=== PATIENT | male | born 1950 | race Caucasian/White ===

== ENCOUNTER 2019-03-31 06:55 | Day surgery (SDC) | payer MEDICARE, OTHER ==
[~2019-03-31] VITALS: Ht 185.4 cm; Wt 99.8 kg
[2019-03-31 07:15] LABS: HEMATOCRIT 39.1 % (42.0-54.0); MCH 29.3 pg (26.0-34.0); MCHC 33.2 g/dL (31.0-37.0); MCV 88.3 fL (80.0-100.0); MEAN PLATELET VOLUME 9.6 fL (7.4-10.4); RBC 4.43 10x6/uL (4.20-6.10); RDW 13.6 % (11.5-14.5); WBC 5.2 10x3/uL (4.8-10.8)
[2019-03-31 07:40] LABS: ANION GAP 11.5 mmol/L (8-16); CALCIUM 9.5 mg/dL (8.5-10.1); CARBON DIOXIDE 30.5 mmol/L (21.0-32.0); CREATININE - SERUM 1.2 mg/dL (0.6-1.3)
[2019-03-31] MEDS ORDERED: CELEXA20 MG PO (07:45)
[2019-03-31] MEDS ORDERED: CRESTOR5 MG PO (07:46)
[2019-03-31] MEDS ORDERED: ROBAXIN500 MG PO (07:46)
[2019-03-31] MEDS ORDERED: ULTRAM50 MG PO (07:46)
[2019-03-31] MEDS ORDERED: BENICAR40 MG PO (07:46)
[2019-03-31] MEDS ORDERED: FLUTICASONE PRO16 GM NASAL (07:46)
[2019-03-31] MEDS ORDERED: NORVASC10 MG PO (07:47)
[2019-03-31] MEDS ORDERED: COREG12.5 MG PO (07:47)
[2019-03-31] MEDS ORDERED: FLOMAX0.4 MG PO (07:47)
[2019-03-31] MEDS ORDERED: HYDROCHLOROTH12.5 M1 PO (07:48)
[2019-03-31] MEDS ORDERED: ASPIRIN81 MG PO (07:48)
[2019-03-31] MEDS ORDERED: PLAVIX75 MG PO (07:48)
[2019-03-31 07:55] VITALS: BP 145/75; Ht 185.4 cm; Wt 99.8 kg
--- NOTE | 2019-03-31 13:28 | NUR ---
DC INSTRUCTIONS GIVEN TO PT/SPOUSE. STATE UNDERSTANDING. DC'D IV CATH FULLY INTACT.
--- NOTE | 2019-03-31 13:50 | NUR ---
PT LEFT UNIT VIA WC AT 1347
--- NOTE | 2019-04-21 11:31 | HP ---
PATIENT: CJ MIRZA MEDICAL RECORD: [id number] ACCOUNT: [id number] LOCATION:[facility] : 48 ADMISSION DATE: 03/31/19 PCP: JEANINE GRAHAM HISTORY AND PHYSICAL EXAMINATION HISTORY: Cj is 68 years old. He has sleep apnea. He has been having trouble using CPAP for sleep apnea because of nasal obstruction issues. He is being admitted for septoplasty and bilateral inferior turbinate reduction. PAST MEDICAL HISTORY: Includes hypertension, coronary artery disease, CVA, and sleep apnea. CURRENT MEDICATIONS: Includes carvedilol; Benicar; amlodipine; tamsulosin; Plavix, which has been held for a week; and aspirin, the same. ALLERGIES: No known drug allergies. PHYSICAL EXAMINATION: GENERAL: He is healthy appearing. FACE: Normal and symmetric. EYES: Sclerae and conjunctivae are normal. EARS: Canals and TMs are normal. NOSE: He has right septal deviation and large inferior turbinates. No masses, polyps, or drainage. ORAL CAVITY AND OROPHARYNX: Small tonsils. Normal palate. NECK: No masses. No adenopathy. CHEST: Clear. CARDIOVASCULAR: Regular rate and rhythm. No murmur. EXTREMITIES: Normal. IMPRESSION: Sleep apnea, difficulty using CPAP, and having issues with nasal obstruction at night giving him those struggles. PLAN: Septoplasty and bilateral inferior turbinate reduction. TRANSINT:[id number] Voice Confirmation ID: [id number] DOCUMENT ID: [id number] BUSHRA GUNN MD at 1131 CC: [id number] DICTATION DATE: 03/27/19 1527 SOAP GRINDER: 03/27/19 1552 [facility] 03/31/19 [id number] [place] [address]
--- NOTE | 2019-04-21 11:31 | OP ---
PATIENT NAME: KURTIS MIRZA MEDICAL RECORD: [id number] :48 [facility] [place] ADMISS[facility] DATE: SURGEON: BUSHRA GUNN MD DATE OF OPERATION: 03/31/2019 PREOPERATIVE DIAGNOSES: Nasal obstruction, septal deviation, and turbinate hypertrophy. POSTOPERATIVE DIAGNOSES: Nasal obstruction, septal deviation, and turbinate hypertrophy. PROCEDURES: Septoplasty and bilateral inferior turbinate reduction. SURGEON: Bushra Gunn MD ANESTHESIA: General orotracheal. BLOOD LOSS: 2 cc. PACKING: Chamorro splints bilaterally. COMPLICATIONS: None. DISPOSITION: Recovery stable. DESCRIPTION OF PROCEDURE: He was brought to the operating room and placed in supine position, sedated and intubated by anesthesia. The table was turned 90 degrees. Head drape was applied. He was positioned for nasal surgery. His nose had been decongested with Afrin preoperatively. His nose was examined using a headlight and nasal speculum, the septum and inferior turbinate, the floor of the nose were injected with a total of 1.5 cc of 1% lidocaine with 1:100,000 epinephrine with a 1.5-inch 27-gauge needle and then 2 Afrin pledgets were placed inside the nose. He was then positioned, prepped and draped in the usual fashion. The Afrin pledgets were removed. The right side Jayce incision was made with a 15 blade. Ipsilateral mucoperichondrial flap was elevated. A spur inferiorly was isolated, it was dissected out with a caudal and a chisel and removed. Then, the bony cartilaginous junction was disarticulated and a contralateral posterior mucoperichondrial flap was elevated to isolate a bony spur posteriorly. Scissors were used to make a cut above and below that and remove that bony spur. This along with some relaxing incisions in the cartilage were allowed the septum to fall back to the midline. Both inferior turbinates were medialized with a freer. A Gruenwald was used to take down the inferior redundant portion of the turbinate and suction cautery on a setting of 28 was used to stop any bleeding and both outfractured with a Hazen elevator. The septum was examined. The nasopharynx was suctioned. Good straight airway on both sides. The [place] incision was closed with interrupted 4-0 chromic. Chamorro splints were placed bilaterally and sutured to the anterior membranous septum with a 2-0 Prolene on a Salas needle with some mupirocin ointment. He was awakened, extubated, and transported to recovery in good condition. No complications. TRANSINT:[id number] Voice Confirmation ID: [id number] DOCUMENT ID: [id number] OPERATIVE REPORT [id number] KURTIS MIRZA, BUSHRA GALLEGOS at 1131 CC: [id number] DICTATION DATE: 03/31/19 1204 SCIENTIST ENGINEER: 03/31/19 1322 [facility] [place] 03/31/19 [facility] [address] [place] [address]
== END 2019-03-31 13:47 | disposition home or self-care (01) ==
LOC: D.OPS 06:55 → D.PAN 09:15 → D.OPS 09:30
PROVIDERS: Anesthesiology; ATTEND Otolaryngology
DX: J34.89 Other specified disorders of nose and nasal sinuses (principal); J34.2 Deviated nasal septum; J34.3 Hypertrophy of nasal turbinates; Z01.812 Encounter for preprocedural laboratory examination